=== PATIENT | male | born 1950 | race Caucasian/White ===

== ENCOUNTER 2023-05-22 09:43 | Outpatient (CLI) | payer MEDICARE | END 2023-05-22 09:44 | disposition home or self-care (01) | LOC: MRI 09:43 | DX: M47.26 Other spondylosis with radiculopathy, lumbar region (principal); M47.817 Spondylosis without myelopathy or radiculopathy, lumbosacral region | CPT/HCPCS: 72148 ==

== ENCOUNTER 2023-07-16 09:11 | Outpatient (CLI) | payer MEDICARE ==
[2023-07-16] MEDS ORDERED: Iopamidol 370 76% 100 ML VIAL ONE (12:52)
== END 2023-07-16 09:12 | disposition home or self-care (01) ==
LOC: CT 09:11
PROVIDERS: ATTEND Family Medicine
DX: N28.9 Disorder of kidney and ureter, unspecified (principal); N28.1 Cyst of kidney, acquired; K57.30 Diverticulosis of large intestine without perforation or abscess without bleeding; I70.90 Unspecified atherosclerosis
CPT/HCPCS: 74178; 82565

== ENCOUNTER 2024-12-30 10:46 | Outpatient (CLI) | payer MEDICARE | END 2024-12-30 10:47 | disposition home or self-care (01) | LOC: SCSMRI 10:46 | DX: M47.816 Spondylosis without myelopathy or radiculopathy, lumbar region (principal); M43.16 Spondylolisthesis, lumbar region; M51.360 Other intervertebral disc degeneration, lumbar region with discogenic back pain only; M51.370 Other intervertebral disc degeneration, lumbosacral region with discogenic back pain only; M48.061 Spinal stenosis, lumbar region without neurogenic claudication; M48.07 Spinal stenosis, lumbosacral region | CPT/HCPCS: 72148 ==